=== PATIENT | female | born 1995 | race Two or more races ===

== ENCOUNTER 2017-08-05 11:57 | Emergency (ER) | payer MEDICAID ==
[~2017-08-05] VITALS: Ht 165.1 cm; Wt 61.2 kg
[2017-08-05 12:10] VITALS: BP 107/69
[2017-08-05] MEDS ORDERED: OCUFLOX5 ML OP (12:13)
[2017-08-05 12:16] VITALS: BP 107/69
--- NOTE | 2017-08-05 12:19 | Emergency Room Report ---
History of Present Illness General Chief Complaint: Eye Problems Source: Patient Present Illness HPI The patient is a 21-year-old female presenting for possible eye infection. She noticed redness of the left eye as well as a yellow discharge for the past 3 days. She woke up this morning with the left eye crusted checked. Pain is an 8 /10 burning sensation and does not radiate from the left eye. She denies any visual changes. She denies any known sick contacts. She denies any other symptoms including nausea, vomiting, fever, chills, dizziness Allergies: Coded Allergies: No Known Allergies (Unverified , 08/05/17) Patient History Past Medical History: see triage record Pertinent Family History: none Last Menstrual Period: 07/27/17 Now: No - UNKNOWN Reviewed Nursing Documentation: PMH: Agreed, PSxH: Agreed Nursing Documentation-PMH Past Medical History: No Stated History Review of Systems All Other Systems: negative except mentioned in HPI Physical Exam Vital Signs Date Time Temp Pulse Resp B/P (MAP) Pulse Ox O2 Delivery O2 Flow Rate FiO2 08/05/17 12:03 98.2 103 18 107/69 99 Room Air Sp02 EP Interpretation: reviewed, normal General Appearance: no apparent distress, alert, GCS 15, non-toxic Head: normocephalic, atraumatic Eyes: left eye lid inflammation, left eye Scleral Injection, left eye other - slight yellow DC, bilateral eye PERRL, bilateral eye EOMI ENT: hearing grossly normal, normal pharynx, no angioedema, normal voice Neck: full range of motion, supple/symm/no masses Respiratory: chest non-tender, lungs clear, normal breath sounds, speaking full sentences Cardiovascular #1: regular rate, rhythm, no edema Musculoskeletal: back normal, gait/station normal, normal range of motion, non- tender Neurologic: alert, oriented x3, responsive, motor strength/tone normal, sensory intact, speech normal Psychiatric: judgement/insight normal, memory normal, mood/affect normal, no suicidal/homicidal ideation Skin: normal color, no rash, warm/dry, well hydrated Medical Decision Making PA Attestation Dr. Weber is my supervising physician. Patient management was discussed with my supervising physician Diagnostic Impression: Primary Impression: Conjunctivitis Qualified Codes: H10.32 - Unspecified acute conjunctivitis, left eye ER Course The patient is a 21-year-old female presenting for possible eye infection. Differential diagnoses considered but not limited to allergic conjunctivitis, bacterial conjunctivitis, viral conjunctivitis, blepharitiis, hordeolum Physical exam: Vitals within normal limits. No apparent distress HEENT: There is left eye injection with yellow discharge. There is mild eyelid edema. EOMI. PERRL Otherwise exam is unremarkable The patient will be discharged home with a prescription for ofloxacin and will follow up with PMD. ER precautions are given Last Vital Signs Date Time Temp Pulse Resp B/P (MAP) Pulse Ox O2 Delivery O2 Flow Rate FiO2 08/05/17 12:03 98.2 103 18 107/69 99 Room Air Status: improved Disposition: HOME, SELF-CARE Condition: Improved Scripts Ofloxacin (OCUFLOX) 5 Ml Drops 1 DROP OP Q4HR, #5 ML Prov: TIA LEÓN 08/05/17 Patient Instructions: Bacterial Conjunctivitis Additional Instructions: I discussed my findings with the patient. All questions and concerns have been answered. Treatment and medication compliance have been addressed. I advised the patient that they need to follow up with primary doctor within one week. Return to ED if symptoms worsen, new symptoms arise, or if needed for any reason. Patient verbalized understanding of discharge instructions. TIA LEÓN Aug 05, 2017 12:19
== END 2017-08-05 12:28 | disposition home or self-care (01) ==
LOC: EMR 12:23
DX: H10.9 Unspecified conjunctivitis (principal)
CPT/HCPCS: 99283